=== PATIENT | female | born 1960 | race Caucasian/White ===

== ENCOUNTER 2023-04-21 13:48 | Emergency (ER) | payer MEDICAID ==
[~2023-04-21] VITALS: Ht 167.6 cm; Wt 72.7 kg
[2023-04-21 13:59] VITALS: BP 129/83; PULSE 90; RESP 18; TEMP 98.2; O2SAT 92
[2023-04-21] MEDS ORDERED: GABA300C PO (15:17)
[2023-04-21] MEDS ORDERED: NICO-687 TOP (15:17)
== END 2023-04-21 15:47 | disposition home or self-care (01) ==
LOC: ER 13:48
DX: F10.20 Alcohol dependence, uncomplicated (principal); F15.20 Other stimulant dependence, uncomplicated; Z88.8 Allergy status to other drugs, medicaments and biological substances; Z79.899 Other long term (current) drug therapy; Y90.9 Presence of alcohol in blood, level not specified
CPT/HCPCS: 99283; A6258

== ENCOUNTER 2024-10-19 18:53 | Emergency (ER) | payer MEDICAID ==
[~2024-10-19] VITALS: Ht 167.6 cm; Wt 65.9 kg
[~2024-10-19 18:53] MED LIST: GABA300C PO
[2024-10-19 19:11] VITALS: BP 131/74; PULSE 74; RESP 18; TEMP 98.9; O2SAT 98
== END 2024-10-19 21:20 | disposition left against medical advice (07) ==
LOC: ER 18:53
DX: S61.216A Laceration without foreign body of right little finger without damage to nail, initial encounter (principal); Z88.8 Allergy status to other drugs, medicaments and biological substances; Z53.21 Procedure and treatment not carried out due to patient leaving prior to being seen by health care provider; X58.XXXA Exposure to other specified factors, initial encounter; Y93.89 Activity, other specified; Y92.89 Other specified places as the place of occurrence of the external cause; Y99.8 Other external cause status